=== PATIENT | female | born 1995 | race Two or more races ===

== ENCOUNTER 2025-02-20 18:39 | Emergency (ER) | payer OTHER ==
[~2025-02-20] VITALS: Ht 154.9 cm; Wt 58.1 kg
[2025-02-20] MEDS ORDERED: PRENATAL + DHA1 EACH PO (19:25)
[2025-02-20 22:15] LABS: BASO % 0.3 % (0.1-1.2); EOS # 0.04 (0.04-0.54); EOS % 0.3 % (0.7-7.0); HEMATOCRIT 42.1 % (34.1-44.9); LYMPH # 2.41 (1.18-3.74); LYMPH % 15.4 % (19.3-53.1); MEAN CORPUSCULAR HEMOGLOBIN 26.4 pg (25.6-32.2); MONO # 0.82 (0.24-0.82); MONO % 5.2 % (4.7-12.5); NEUT # 12.27 (1.56-6.13); NEUT % 78.2 % (34.0-71.1); PLATELET COUNT 326 K/uL (163-369); RED CELL DISTRIBUTION WIDTH 12.7 % (11.6-14.4)
[2025-02-20 23:11] LABS: CALCIUM 9.8 mg/dL (8.5-10.1); CREATININE SERUM 0.58 mg/dL (0.55-1.02); GFR 121.25; POTASSIUM 3.94 mEq/L (3.5-5.1)
[2025-02-21] LABS: PH,URINE 6.5 (5.0-8.0); URINE APPEARANCE Clear; URINE BILIRRUBIN Negative (NEGATIVE); URINE BLOOD Moderate; URINE COLOR Yellow; URINE GLUCOSE Negative (NEGATIVE); URINE KETONE Negative (NEGATIVE); URINE LEUKOCYTE Negative; URINE NITRATE Negative; URINE PROTEIN Negative (NEGATIVE)
[2025-02-21 00:04] LABS: URINE BACTERIA 13.4 uL (0.0-1933); URINE RBC 3.8 uL (0.0-20.8); URINE WBC 11.5 uL (0.0-23.2)
[2025-02-21 00:08] LABS: TYPE CELLS SQUAMOUS
== END 2025-02-21 00:28 | disposition home or self-care (01) ==
LOC: ER 21:48
PROVIDERS: Emergency Medicine
DX: O20.9 Hemorrhage in early pregnancy, unspecified (principal); Z3A.01 Less than 8 weeks gestation of pregnancy

== ENCOUNTER 2025-02-21 05:14 | Emergency (ER) | payer OTHER ==
[~2025-02-21] VITALS: Ht 154.9 cm; Wt 58.1 kg
[~2025-02-21 05:14] MED LIST: PRENATAL + DHA1 EACH PO
[2025-02-21] MEDS ORDERED: 0.9 % SODIUM CHLORIDE 1,000 ML IV STA (06:22)
[2025-02-21] MEDS ORDERED: METOCLOPRAMIDE HCL 5 MG/ML VIAL IM STA (06:23)
[2025-02-21] MEDS ORDERED: ONDANSETRON HCL 2 MG/ML VIAL IV STA (06:23)
[2025-02-21] MEDS ORDERED: FAMOtidine 10 MG/ML (4ML VIAL) IV PUSH STA (06:23)
[2025-02-21 08:12] LABS: BASO % 0.3 % (0.1-1.2); EOS # 0.03 (0.04-0.54); EOS % 0.2 % (0.7-7.0); HEMOGLOBIN 14.5 g/dL (11.2-15.7); LYMPH # 1.76 (1.18-3.74); LYMPH % 11.1 % (19.3-53.1); MEAN CORPUSCULAR HEMOGLOBIN 26.8 pg (25.6-32.2); MONO # 0.85 (0.24-0.82); MONO % 5.4 % (4.7-12.5); NEUT % 82.4 % (34.0-71.1); PLATELET COUNT 342 K/uL (163-369); RED BLOOD COUNT 5.42 M/uL (3.93-5.22); RED CELL DISTRIBUTION WIDTH 12.8 % (11.6-14.4)
[2025-02-21 08:27] LABS: INR 1.02; PARTIAL THROMBOPLASTIN TIME 26.5 SECONDS (22.0-34.0); PROTHROMBIN TIME 11.1 SECONDS (9.0-11.5)
[2025-02-21 08:42] LABS: BILIRUBIN TOTAL 0.68 mg/dL (0.3-1.2); CREATININE SERUM 0.53 mg/dL (0.55-1.02); GFR 134.55; GLOBULINA 4.3 G/DL (2.4-3.5); POTASSIUM 4.31 mEq/L (3.5-5.1); TOTAL PROTEIN 8.3 gm/dL (6.4-8.2)
== END 2025-02-21 09:22 | disposition home or self-care (01) ==
LOC: ER 05:56
DX: O20.0 Threatened abortion (principal); O21.0 Mild hyperemesis gravidarum; Z3A.01 Less than 8 weeks gestation of pregnancy; R10.9 Unspecified abdominal pain